=== PATIENT | male | born 1965 | race Caucasian/White ===

== ENCOUNTER 2019-12-07 07:21 | Emergency (ER) | payer BC ==
--- NOTE | 2019-12-07 07:33 | EDM.PDOC ---
ED HPI GENERAL MEDICAL PROBLEM - General Stated Complaint: IRREGULAR HEART BEAT Time Seen by Provider: 12/07/19 07:27 Source of Information: Reports: Patient History Limitations: Reports: No Limitations - History of Present Illness INITIAL COMMENTS - FREE TEXT/NARRATIVE: HISTORY OF PRESENT ILLNESS: Patient is a 54-year-old male with history of HTN, hyperlipidemia who presents to the ER with complaints of palpitations that began approximately 45 minutes prior to arrival and lasted a few minutes and resolved spontaneously. [place] warm and lightheaded. Denies any symptoms since that time. States that he has had multiple episodes of brief palpitations in the past, but , what concerned him today was the fact that he checked his blood pressure afterward repeatedly and the more he checked it the higher it went. States it went to 150/102. He denies any retrosternal chest pain but states he is get occasional muscular pain to the left pectoral muscle which is been going on for years and unchanged from baseline frequency or character. Denies any recent illness no fevers or chills. No dyspnea. No abdominal pain nausea vomiting or diarrhea. No diaphoresis. Denies any syncope. No leg pain or history of thromboembolic disease. Denies any current sensation of palpitations. Denies any family history of heart disease. Pt is not a smoker. Denies history of CAD REVIEW OF SYSTEMS: Other than the symptoms associated with the present events, the following is reported with regard to recent health: General: (-) fever. HENT: (-) congestion. Respiratory: (-) cough. Cardiovascular: (+) palpitations GI: (-) abdominal pain. : (-) urinary complaints. Musculoskeletal: (-) other aches or pains. Endocrine: (-) generalized weakness. Neurological: (-) localized weakness. Skin: (-) rash PAST MEDICAL HISTORY: reviewed as per nursing notes SOCIAL HISTORY: reviewed as per nursing notes, MEDICATIONS: Per nurse's note ALLERGIES: Per nurse's note, reviewed by me PHYSICAL EXAMINATION: GENERALIZED APPEARANCE: well developed, well nourished in no distress VITAL SIGNS: Per nurse's note, reviewed by me SKIN: Warm, dry; (-) cyanosis; (-) rash. HEAD: (-) scalp swelling, (-) tenderness. EYES: (-) conjunctival pallor, (-) scleral icterus. ENMT: (-) stridor; mucous membranes moist. NECK: (-) tenderness, (-) stiffness, CHEST AND RESPIRATORY: (-) rales, (-) rhonchi, (-) wheezes; breath sounds equal bilaterally. HEART AND CARDIOVASCULAR: (-) irregularity; (-) murmur, (-) gallop. ABDOMEN AND GI: Soft; (-) tenderness, (-) guarding, (-) rebound, (-) palpable masses, EXTREMITIES: (-) deformity, (-) edema. NEURO AND PSYCH: Alert. Cranial nerves grossly intact; strength symmetric. gait steady DIAGNOSTICS: EKG done at 0724: nsr at 71 bpm. nml axis. nml intervals. early repolarization. no acute st changes repeat EKG 0936: essentially unchanged. CXR: as read by radiologist, report reviewed by myself labs ordered and reviewed EMERGENCY DEPARTMENT COURSE AND TREATMENT: Patient's condition remained stable during Emergency Department evaluation. Based on history, physical exam, and diagnostic evaluation, the patient appears to have symptoms consistent with palpitations that have resolved. He has chronic intermittent muscular pain to left pectoral muscle and is low risk chest pain with low HEART score. The physical exam was unremarkable including normal chest and respiratory exam. Laboratory testing was performed. I do not believe the symptoms are related to acute ischemic etiology. I also do not believe this is a vascular catastrophe such as an aortic dissection or an acute rupture of an abdominal aortic aneurysm. The patient is low risk for acute thromboembolic phenomena. The patient will be discharged to follow-up with their primary care physician in the next 24-48 hours or return here if unable to make an appointment with their primary care physician. Patient was advised of our evaluation and instructed to seek medical attention immediately if symptoms change, worsen, or new symptoms develop. PLAN AND FOLLOW-UP: Patient received written and verbal instructions regarding this condition. Return to ED immediately with any new or worsening symptoms. Follow up to be arranged by patient with pcp in 1-2 days for further evaluation. Given discharge precautions. Patient expressed verbal understanding. - Related Data Allergies Allergy/AdvReac Type Severity Reaction Status Date / Time No Known Allergies Allergy Verified 12/07/19 07:32 Home Meds: Home Meds Carvedilol [Coreg] 12.5 mg PO DAILY 12/07/19 [History] Lisinopril [Zestril] 5 mg PO DAILY 12/07/19 [History] Rosuvastatin [Crestor] 5 mg PO BEDTIME 12/07/19 [History] ED ROS GENERAL - Review of Systems Review Of Systems: See Below (see dictation) ED EXAM, GENERAL - Physical Exam Exam: See Below (see dictation) Course - Vital Signs Last Recorded V/S: Last Vital Signs Temp 97.3 F 12/07/19 07:25 Pulse 65 12/07/19 10:15 Resp 18 12/07/19 10:15 BP 118/76 12/07/19 10:15 Pulse Ox 98 12/07/19 10:15 - Orders/Labs/Meds Orders: Active Orders 24 hr Category Date Time Status EKG Documentation Completion [RC] STAT Care 12/07/19 07:28 Active Labs: Laboratory Tests 12/07/19 12/07/19 12/07/19 Range/Units 07:20 07:20 09:27 WBC 9.76 (4.0-11.0) K/uL RBC 4.89 (4.50-5.90) M/uL Hgb 15.6 (13.0-17.0) g/dL Hct 44.6 (38.0-50.0) % MCV 91.2 (80.0-98.0) fL MCH 31.9 (27.0-32.0) pg MCHC 35.0 (31.0-37.0) g/dL RDW Std Deviation 42.6 (28.0-62.0) fl RDW Coeff of [place] 13 (11.0-15.0) % Plt Count 277 (150-400) K/uL MPV 10.40 (7.40-12.00) fL Neut % (Auto) 48.9 (48.0-80.0) % Lymph % (Auto) 38.1 (16.0-40.0) % [place] % (Auto) 11.4 (0.0-15.0) % Eos % (Auto) 1.4 (0.0-7.0) % Baso % (Auto) 0.2 (0.0-1.5) % Neut # (Auto) 4.8 (1.4-5.7) K/uL Lymph # (Auto) 3.7 H (0.6-2.4) K/uL [place] # (Auto) 1.1 H (0.0-0.8) K/uL Eos # (Auto) 0.1 (0.0-0.7) K/uL Baso # (Auto) 0.0 (0.0-0.1) K/uL Nucleated RBC % 0.0 /100WBC Nucleated RBCs # 0 K/uL Sodium 141 (136-148) mmol/L Potassium 3.7 (3.5-5.1) mmol/L Chloride 103 (98-107) mmol/L Carbon Dioxide 31.0 (21.0-32.0) mmol/L BUN 12 (7.0-18.0) mg/dL Creatinine 0.9 (0.8-1.3) mg/dL Est Cr Clr Drug Dosing 114.75 mL/min Estimated GFR (MDRD) > 60.0 ml/min Glucose 99 (74-106) mg/dL Calcium 9.2 (8.5-10.1) mg/dL Magnesium 2.3 (1.8-2.4) mg/dL Total Bilirubin 0.6 (0.2-1.0) mg/dL AST 31 (15-37) IU/L ALT 46 (14-63) IU/L Alkaline Phosphatase 102 (46-116) U/L Troponin I < 0.050 < 0.050 (0.000-0.056) ng/mL Total Protein 7.5 (6.4-8.2) g/dL Albumin 4.3 (3.4-5.0) g/dL Globulin 3.2 (2.6-4.0) g/dL Albumin/Globulin Ratio 1.3 (0.9-1.6) Departure - Departure Time of Disposition: 10:08 Disposition: Home, Self-Care 01 Condition: Good Clinical Impression: Palpitations - Discharge Information *PRESCRIPTION DRUG MONITORING PROGRAM REVIEWED*: Not Applicable *COPY OF PRESCRIPTION DRUG MONITORING REPORT IN PATIENT RHIANNON: Not Applicable Instructions: Hypertension, [id number], Palpitations Referrals: PCP,None [Primary Care Provider] - 1 Day Forms: ED Department Discharge Additional Instructions: The following information is given to patients seen in the emergency department who are being discharged to home. This information is to outline your options for follow-up care. We provide all patients seen in our emergency department with a follow-up referral. The need for follow-up, as well as the timing and circumstances, are variable depending upon the specifics of your emergency department visit. If you don't have a primary care physician on staff, we will provide you with a referral. We always advise you to contact your personal physician following an emergency department visit to inform them of the circumstance of the visit and for follow-up with them and/or the need for any referrals to a consulting specialist. The emergency department will also refer you to a specialist when appropriate. This referral assures that you have the opportunity for follow-up care with a specialist. All of these measure are taken in an effort to provide you with optimal care, which includes your follow-up. Under all circumstances we always encourage you to contact your private physician who remains a resource for coordinating your care. When calling for follow-up care, please make the office aware that this follow-up is from your recent emergency room visit. If for any reason you are refused follow-up, please contact the [facility] Emergency Department at and asked to speak to the emergency department charge nurse. Sepsis Event Note - Focused Exam Vital Signs: Vital Signs Temp Pulse Resp BP Pulse Ox 12/07/19 10:15 65 18 118/76 98 12/07/19 09:00 66 18 123/84 96 12/07/19 08:25 69 18 127/84 98 12/07/19 07:45 77 18 146/97 H 97 12/07/19 07:25 97.3 F 70 18 161/100 H 98 Date Exam was Performed: 12/07/19 Time Exam was Performed: 10:45 - My Orders Last 24 Hours: My Active Orders 12/07/19 07:28 EKG Documentation Completion [RC] STAT - Assessment/Plan Last 24 Hours: My Active Orders 12/07/19 07:28 EKG Documentation Completion [RC] STAT
[2019-12-07 08:10] LABS: BLOOD UREA NITROGEN,BUN 12 mg/dL (7.0-18.0); CHLORIDE,CL 103 mmol/L (98-107); GLUCOSE RANDOM 99 mg/dL (74-106); POTASSIUM,K 3.7 mmol/L (3.5-5.1); SODIUM,NA 141 mmol/L (136-148)
--- NOTE | 2019-12-07 09:47 | CR ---
Chest: Portable view of the chest was obtained. Comparison: No prior chest x-ray is available. Heart size and mediastinum are normal. Lungs are clear with no acute parenchymal change. Bony structures are grossly intact. Impression: 1. Nothing acute is appreciated on portable chest x-ray. Diagnostic code #1 This report was dictated in MDT
== END 2019-12-07 10:20 | disposition home or self-care (01) ==
LOC: MW.ED 07:21
DX: R00.2 Palpitations (principal); I10 Essential (primary) hypertension; E78.5 Hyperlipidemia, unspecified; Z79.899 Other long term (current) drug therapy
CPT/HCPCS: 36415; 71045; 71045-26; 80053; 83735; 84484; 85025; 93005; 99283; 99285-25

== ENCOUNTER 2021-02-03 21:09 | Emergency (ER) | payer BC ==
[2021-02-03] MEDS ORDERED: Sodium Chloride 0.9% 10 ML Syringe FLUSH PRN (21:31)
[2021-02-03] MEDS ORDERED: Sodium Chloride 0.9% 2.5 ML Syringe FLUSH PRN (21:31)
--- NOTE | 2021-02-03 21:43 | EDM.PDOC ---
ED HPI GENERAL MEDICAL PROBLEM - General Chief Complaint: Cardiovascular Problem Stated Complaint: RAPID HEART BEAT Time Seen by Provider: 02/03/21 21:20 - History of Present Illness INITIAL COMMENTS - FREE TEXT/NARRATIVE: History of present illness: [] The patient reports that about 7 PM he began to have rapid heart rate. He thinks it was after that the thinks it was about that. He is not diaphoretic or short of breath. He does not feel lightheaded. He does not have any chest pain. This happened 14 months ago and he was seen in the emergency department but it stopped on its own before he got here. In the remote past he has had a fast heart rate and had an ablation. That was after a prolonged recovery from a myocardial contusion from trauma. The patient is a non-smoker. The patient does not drink. Patient's dog scratch his right hand fairly deeply 2 days ago. He has not had a tetanus shot in 10 years. Review of systems: As per history of present illness and below otherwise all systems reviewed and negative. Past medical history: As per history of present illness and as reviewed below otherwise noncontributory. Surgical history: As per history of present illness and as reviewed below otherwise noncontributory. Social history: No reported history of drug or alcohol abuse. Family history: As per history of present illness and as reviewed below otherwise noncontributory. Physical exam: Constitutional - well developed, well-nourished and in no acute distress HEENT - normocephalic, no evidence of trauma - external nose and mouth normal - no mass in neck and no JVD - mucosae moist EYES - full EOM, PERRL, no icterus - no evidence of inflammation, injection, or drainage Respiratory - no respiratory distress, equal bilateral expansion, lungs clear to auscultation and no abnormal lung sounds Cardiovascular - Regular Rhythm with S1 and S2 appreciated and no murmur, gallop or rub. GI - abdomen soft without distension or organomegaly - normal bowel sounds - no guard or rebound Musculoskeletal no gross deformity of long bones or joints - no tenderness, swelling or edema Neurologic - Alert and oriented times four - CN II-XII grossly intact - motor sensory and coordination symmetrically normal Psychiatric - appropriate mood and affect with normal thought content Hematologic - No petechiae or purpura - mucosa appropriate color and sclera not pale - normal nail bed color and refill Integument -healing linear abrasion across the dorsum of the right hand over the MPJ #1 which is healing and not apparently infected no rash or evidence of trauma - normal turgor Diagnostics: [] Therapeutics: [] Impression: [] Plan: [] Definitive disposition and diagnosis as appropriate pending reevaluation and review of above. - Related Data Allergies Allergy/AdvReac Type Severity Reaction Status Date / Time No Known Allergies Allergy Verified 02/03/21 21:19 Home Meds: Home Meds Rosuvastatin [Crestor] 5 mg PO BEDTIME 12/07/19 [History] carvediloL [Coreg] 12.5 mg PO DAILY 12/07/19 [History] lisinopriL [Zestril] 5 mg PO DAILY 12/07/19 [History] Diltiazem [Cardizem CD] 120 mg PO DAILY #30 cap.er 02/03/21 [Rx] Diltiazem [Cardizem CD] 120 mg PO DAILY #30 cap.er 02/04/21 [Rx] Past Medical History Cardiovascular History: Reports: High Cholesterol, Hypertension, Other (See Below) Other Cardiovascular History: aortic enlargement Respiratory History: Reports: Asthma - Infectious Disease History Infectious Disease History: Reports: Chicken Pox - Past Surgical History Cardiovascular Surgical History: Reports: Cardiac Ablation Social & Family History - Family History Family Medical History: No Pertinent Family History - Tobacco Use Tobacco Use Status *Q: Never Tobacco User - Caffeine Use Caffeine Use: Reports: None - Recreational Drug Use Recreational Drug Use: No ED ROS GENERAL - Review of Systems Review Of Systems: Comprehensive ROS is negative, except as noted in HPI. ED EXAM, GENERAL - Physical Exam Exam: See Below Free Text/Narrative:: My physical exam is in the HPI #2 Interpretation EKG Date: 02/03/21 EKG Interpretation Comments: EKG done at 2128 hrs. shows a atrial fibrillation with a ventricular rate of 136 . There is a QT duration of 474 and an axis of 11. QRS ST and T are within normal limits. Compared to 12/07/2019 the patient's QRS ST and T are similar. The patient was in a sinus rhythm at that time. Impression recurrence of atrial fibrillation but otherwise no ischemia or injury. He does have a rapid ventricular response. EKG #2 done at 2332 hrs. shows sinus rhythm heart rate 69 DE 174 QT duration 423 axis negative for. There is some ST elevation in the precordial leads. When compared to prior EKG 14 months ago the patient has no change. Impression spontaneous conversion to sinus rhythm with no acute injury. Course - Vital Signs Text/Narrative:: 2241 hrs. patient has a controlled ventricular rate after 1 dose of diltiazem. He is already on a beta-ariadne at home. Discussed with Dr. Hernandez our sampler and test preparer on-call for admissions. She felt this patient with a CHADS2 score of 1 could go home without anticoagulation and have cardiology follow-up if I can control his rate. She did suggest to serial troponin levels. Since there were 2hours or more of symptoms before he had his first troponin now repeated 2 hours after the initial draw. 2307 while awaiting the second troponin the heart rate which had come down to 80-90 is creep back up to the 124. See orders 2333 it appears he may have converted to sinus rhythm before I gave the oral Cardizem. Blood pressure is only 90 systolic. Plan repeat EKG, reassess troponin, disposition. Last Recorded V/S: Last Vital Signs Temp Pulse 73 02/03/21 23:51 Resp 17 02/03/21 22:07 BP 102/58 L 02/03/21 23:51 Pulse Ox 97 02/03/21 23:51 - Orders/Labs/Meds Orders: Active Orders 24 hr Category Date Time Status EKG 12 Lead [EKG Documentation Completion] [RC] STAT Care 02/03/21 23:33 Active EKG Documentation Completion [RC] AM Care 02/03/21 21:31 Active Telemetry Monitoring [Cardiac Monitoring] [RC] . Care 02/03/21 21:45 Active DIRECTED Vaccines to be Administered [RC] PER UNIT ROUTINE Care 02/03/21 23:54 Active Sodium Chloride 0.9% [Saline Flush] Med 02/03/21 21:31 Active 10 ml FLUSH ASDIRECTED PRN Sodium Chloride 0.9% [Saline Flush] Med 02/03/21 21:31 Active 2.5 ml FLUSH ASDIRECTED PRN Saline Lock Insert [OM.PC] Stat Oth 02/03/21 21:31 Ordered Medication Orders Sodium Chloride (Sodium Chloride 0.9% 10 Ml Syringe) 10 ml FLUSH ASDIRECTED PRN PRN Reason: Keep Vein Open Last Admin: 02/03/21 21:33 Dose: 10 ml Documented by: MARK Sodium Chloride (Sodium Chloride 0.9% 2.5 Ml Syringe) 2.5 ml FLUSH ASDIRECTED PRN PRN Reason: Keep Vein Open Last Admin: 02/03/21 21:33 Dose: 2.5 ml Documented by: MARK Labs: Laboratory Tests 02/03/21 02/03/21 02/03/21 Range/Units 21:27 21:27 23:26 WBC 14.32 H (4.0-11.0) K/uL RBC 5.15 (4.50-5.90) M/uL Hgb 16.9 (13.0-17.0) g/dL Hct 46.8 (38.0-50.0) % MCV 90.9 (80.0-98.0) fL MCH 32.8 H (27.0-32.0) pg MCHC 36.1 (31.0-37.0) g/dL RDW Std Deviation 41.8 (28.0-62.0) fl RDW Coeff of [place] 13 (11.0-15.0) % Plt Count 257 (150-400) K/uL MPV 10.80 (7.40-12.00) fL Neut % (Auto) 67.1 (48.0-80.0) % Lymph % (Auto) 21.9 (16.0-40.0) % [place] % (Auto) 10.1 (0.0-15.0) % Eos % (Auto) 0.6 (0.0-7.0) % Baso % (Auto) 0.3 (0.0-1.5) % Neut # (Auto) 9.6 H (1.4-5.7) K/uL Lymph # (Auto) 3.1 H (0.6-2.4) K/uL [place] # (Auto) 1.5 H (0.0-0.8) K/uL Eos # (Auto) 0.1 (0.0-0.7) K/uL Baso # (Auto) 0.0 (0.0-0.1) K/uL Nucleated RBC % 0.0 /100WBC Nucleated RBCs # 0 K/uL Sodium 141 (136-148) mmol/L Potassium 3.9 (3.5-5.1) mmol/L Chloride 103 (98-107) mmol/L Carbon Dioxide 26.3 (21.0-32.0) mmol/L BUN 14 (7.0-18.0) mg/dL Creatinine 1.1 (0.8-1.3) mg/dL Est Cr Clr Drug Dosing 92.82 mL/min Estimated GFR (MDRD) > 60.0 ml/min Glucose 121 H (74-106) mg/dL Calcium 9.0 (8.5-10.1) mg/dL Magnesium 2.1 (1.8-2.4) mg/dL Total Bilirubin 0.5 (0.2-1.0) mg/dL AST 30 (15-37) IU/L ALT 56 (14-63) IU/L Alkaline Phosphatase 100 (46-116) U/L Troponin I < 0.050 < 0.050 (0.000-0.056) ng/mL Total Protein 7.8 (6.4-8.2) g/dL Albumin 4.3 (3.4-5.0) g/dL Globulin 3.5 (2.6-4.0) g/dL Albumin/Globulin Ratio 1.2 (0.9-1.6) TSH 3rd Generation 2.16 (0.36-3.74) uIU/mL Meds: Medications Generic Name Dose Route Start Last Admin Trade Name Jo Ann PRN Reason Stop Dose Admin Sodium Chloride 10 ml 02/03/21 21:31 02/03/21 21:33 Sodium Chloride 0.9% 10 Ml Syringe FLUSH 10 ml ASDIRECTED PRN Administration Keep Vein Open Sodium Chloride 2.5 ml 02/03/21 21:31 02/03/21 21:33 Sodium Chloride 0.9% 2.5 Ml Syringe FLUSH 2.5 ml ASDIRECTED PRN Administration Keep Vein Open Discontinued Medications Generic Name Dose Route Start Last Admin Trade Name Freq PRN Reason Stop Dose Admin Diltiazem HCl 20 mg 02/03/21 21:46 02/03/21 21:59 Diltiazem 25 Mg/5 Ml Sdv IVPUSH 02/03/21 21:47 20 mg ONETIME ONE Administration Diltiazem HCl 120 mg 02/03/21 23:07 02/03/21 23:37 Diltiazem 120 Mg Cap.Cd PO 02/03/21 23:08 Not Given ONETIME ONE Diphtheria/Tetanus/Acell Pertussis 0.5 ml 02/03/21 23:54 Diphtheria,Pertussis(Acell),Tetanus Vaccine 0.5 Ml Syringe IM 02/03/21 23:55 .ONCE ONE Departure - Departure Time of Disposition: 00:05 Disposition: Home, Self-Care 01 Condition: Good Clinical Impression: Paroxysmal atrial fibrillation, Abrasion of right hand Prescriptions: Diltiazem [Cardizem CD] 120 mg PO DAILY #30 cap.er Referrals: PCP,None [Primary Care Provider] - Forms: ED Department Discharge Additional Instructions: Start new medicine. With hold it if you are dizzy lightheaded or your blood pressure is extremely low. See cardiology for follow-up. [facility] - cardiology [address] [place] [id number] [facility] - Primary Care [address] [place] [id number] [id number] The following information is given to patients seen in the emergency department who are being discharged to home. This information is to outline your options for follow-up care. We provide all patients seen in our emergency department with a follow-up referral. The need for follow-up, as well as the timing and circumstances, are variable depending upon the specifics of your emergency department visit. If you don't have a primary care physician on staff, we will provide you with a referral. We always advise you to contact your personal physician following an emergency department visit to inform them of the circumstance of the visit and for follow-up with them and/or the need for any referrals to a consulting specialist. The emergency department will also refer you to a specialist when appropriate. This referral assures that you have the opportunity for follow-up care with a specialist. All of these measure are taken in an effort to provide you with optimal care, which includes your follow-up. Under all circumstances we always encourage you to contact your private physician who remains a resource for coordinating your care. When calling for follow-up care, please make the office aware that this follow-up is from your recent emergency room visit. If for any reason you are refused follow-up, please contact the [facility] Emergency Department at and asked to speak to the emergency department charge nurse. Sepsis Event Note (ED) - Evaluation Sepsis Screening Result: No Definite Risk - Focused Exam Vital Signs: Vital Signs Pulse Resp BP Pulse Ox 02/03/21 23:51 73 102/58 L 97 02/03/21 23:22 102 H 107/60 93 L 02/03/21 22:48 97 103/59 L 93 L 02/03/21 22:07 88 17 107/80 95 02/03/21 21:20 156 H 20 129/75 91 L - My Orders Last 24 Hours: My Active Orders 02/03/21 21:31 EKG Documentation Completion [RC] AM Sodium Chloride 0.9% [Saline Flush] 10 ml FLUSH ASDIRECTED PRN Sodium Chloride 0.9% [Saline Flush] 2.5 ml FLUSH ASDIRECTED PRN Saline Lock Insert [OM.PC] Stat 02/03/21 21:45 Telemetry Monitoring [Cardiac Monitoring] [RC] . DIRECTED 02/03/21 23:33 EKG 12 Lead [EKG Documentation Completion] [RC] STAT 02/03/21 23:54 Vaccines to be Administered [RC] PER UNIT ROUTINE - Assessment/Plan Last 24 Hours: My Active Orders 02/03/21 21:31 EKG Documentation Completion [RC] AM Sodium Chloride 0.9% [Saline Flush] 10 ml FLUSH ASDIRECTED PRN Sodium Chloride 0.9% [Saline Flush] 2.5 ml FLUSH ASDIRECTED PRN Saline Lock Insert [OM.PC] Stat 02/03/21 21:45 Telemetry Monitoring [Cardiac Monitoring] [RC] . DIRECTED 02/03/21 23:33 EKG 12 Lead [EKG Documentation Completion] [RC] STAT 02/03/21 23:54 Vaccines to be Administered [RC] PER UNIT ROUTINE
[2021-02-03] MEDS ORDERED: Diltiazem 25 MG/5 ML SDV IVPUSH ONE (21:46)
[2021-02-03 22:08] LABS: BLOOD UREA NITROGEN,BUN 14 mg/dL (7.0-18.0); CARBON DIOXIDE,CO2 26.3 mmol/L (21.0-32.0); CHLORIDE,CL 103 mmol/L (98-107); GLUCOSE RANDOM 121 mg/dL (74-106); POTASSIUM,K 3.9 mmol/L (3.5-5.1); SODIUM,NA 141 mmol/L (136-148)
[2021-02-03] MEDS ORDERED: Diltiazem 120 MG Cap.CD PO ONE (23:07)
[2021-02-03] MEDS ORDERED: Diphtheria,Pertussis(Acell),Tetanus Vaccine 0.5 ML Syringe IM ONE (23:54)
== END 2021-02-04 00:22 | disposition home or self-care (01) ==
LOC: MW.ED 21:09
DX: S60.511A Abrasion of right hand, initial encounter (principal); I48.0 Paroxysmal atrial fibrillation; E78.00 Pure hypercholesterolemia, unspecified; I10 Essential (primary) hypertension; J45.909 Unspecified asthma, uncomplicated; Z23 Encounter for immunization; Z79.899 Other long term (current) drug therapy; W54.8XXA Other contact with dog, initial encounter
CPT/HCPCS: 36415; 80053; 83735; 84443; 84484; 85025; 90471; 90715; 93005; 96374; 99285; J3490

== ENCOUNTER 2021-07-08 21:08 | Emergency (ER) | payer BC ==
--- NOTE | 2021-07-08 21:17 | EDM.PDOC ---
ED HPI GENERAL MEDICAL PROBLEM - General Chief Complaint: Cardiovascular Problem Stated Complaint: AFIB Time Seen by Provider: 07/08/21 21:12 Source of Information: Reports: Patient History Limitations: Reports: No Limitations - History of Present Illness INITIAL COMMENTS - FREE TEXT/NARRATIVE: Patient is a 55-year-old male history of A. fib on a beta-ariadne presents today for palpitation. States his heart is feels funny is beating fast and are normal. He denies any chest pain shortness of breath fever chills nausea vomiting. He took his medications this morning at night as well. Denies any caffeine use drugs or alcohol or anything that would have triggered his A. fib. - Related Data Allergies Allergy/AdvReac Type Severity Reaction Status Date / Time No Known Allergies Allergy Verified 07/08/21 21:17 Home Meds: Home Meds Rosuvastatin [Crestor] 5 mg PO BEDTIME 12/07/19 [History] carvediloL [Coreg] 12.5 mg PO DAILY 12/07/19 [History] lisinopriL [Zestril] 5 mg PO DAILY 12/07/19 [History] Diltiazem [Cardizem CD] 120 mg PO DAILY #30 cap.er 02/03/21 [Rx] Diltiazem [Cardizem CD] 120 mg PO DAILY #30 cap.er 02/04/21 [Rx] Past Medical History Cardiovascular History: Reports: High Cholesterol, Hypertension, Other (See Below) Other Cardiovascular History: aortic enlargement Respiratory History: Reports: Asthma - Infectious Disease History Infectious Disease History: Reports: Chicken Pox - Past Surgical History Cardiovascular Surgical History: Reports: Cardiac Ablation Social & Family History - Family History Family Medical History: No Pertinent Family History - Caffeine Use Caffeine Use: Reports: None ED ROS GENERAL - Review of Systems Review Of Systems: See Below Constitutional: Reports: No Symptoms HEENT: Reports: No Symptoms Respiratory: Reports: No Symptoms Cardiovascular: Reports: Palpitations Endocrine: Reports: No Symptoms GI/Abdominal: Reports: No Symptoms : Reports: No Symptoms Musculoskeletal: Reports: No Symptoms Skin: Reports: No Symptoms Neurological: Reports: No Symptoms Psychiatric: Reports: No Symptoms Hematologic/Lymphatic: Reports: No Symptoms Immunologic: Reports: No Symptoms ED EXAM, GENERAL - Physical Exam Exam: See Below Exam Limited By: No Limitations General Appearance: Alert, WD/WN, No Apparent Distress Eye Exam: Bilateral Eye: EOMI, PERRL Nose: Normal Inspection Throat/Mouth: Normal Inspection Head: Atraumatic, Normocephalic Neck: Normal Inspection Respiratory/Chest: No Respiratory Distress, Lungs Clear, Normal Breath Sounds Cardiovascular: Normal Peripheral Pulses, Regular Rate, Rhythm Peripheral Pulses: 2+: Radial (L), Radial (R) GI/Abdominal: Normal Bowel Sounds, Soft, Non-Tender Extremities: Normal Inspection, Normal Range of Motion Neurological: Alert, Oriented, Normal Cognition, Normal Gait Course - Vital Signs Last Recorded V/S: Last Vital Signs Temp 97 F 07/08/21 21:17 Pulse 55 L 07/08/21 23:55 Resp 18 07/08/21 23:18 BP 95/51 L 07/08/21 23:55 Pulse Ox 95 07/08/21 23:55 - Orders/Labs/Meds Orders: Active Orders 24 hr Category Date Time Status MAGNESIUM [CHEM] Stat Lab 07/08/21 21:20 Received Labs: Laboratory Tests 07/08/21 07/08/21 Range/Units 21:20 21:20 WBC 9.03 (4.0-11.0) K/uL RBC 4.73 (4.50-5.90) M/uL Hgb 15.3 (13.0-17.0) g/dL Hct 42.3 (38.0-50.0) % MCV 89.4 (80.0-98.0) fL MCH 32.3 H (27.0-32.0) pg MCHC 36.2 (31.0-37.0) g/dL RDW Std Deviation 40.6 (28.0-62.0) fl RDW Coeff of [place] 13 (11.0-15.0) % Plt Count 229 (150-400) K/uL MPV 10.00 (7.40-12.00) fL Neut % (Auto) 54.7 (48.0-80.0) % Lymph % (Auto) 32.4 (16.0-40.0) % [place] % (Auto) 11.0 (0.0-15.0) % Eos % (Auto) 1.7 (0.0-7.0) % Baso % (Auto) 0.2 (0.0-1.5) % Neut # (Auto) 4.9 (1.4-5.7) K/uL Lymph # (Auto) 2.9 H (0.6-2.4) K/uL [place] # (Auto) 1.0 H (0.0-0.8) K/uL Eos # (Auto) 0.2 (0.0-0.7) K/uL Baso # (Auto) 0.0 (0.0-0.1) K/uL Nucleated RBC % 0.0 /100WBC Nucleated RBCs # 0 K/uL Sodium 144 (136-148) mmol/L Potassium 3.9 (3.5-5.1) mmol/L Chloride 105 (98-107) mmol/L Carbon Dioxide 30.2 (21.0-32.0) mmol/L BUN 18 (7.0-18.0) mg/dL Creatinine 1.0 (0.8-1.3) mg/dL Est Cr Clr Drug Dosing 102.10 mL/min Estimated GFR (MDRD) > 60.0 ml/min Glucose 103 (74-106) mg/dL Calcium 9.2 (8.5-10.1) mg/dL Total Bilirubin 0.5 (0.2-1.0) mg/dL AST 28 (15-37) IU/L ALT 34 (14-63) IU/L Alkaline Phosphatase 90 (46-116) U/L Creatine Kinase 278 (26-308) U/L Troponin I < 0.050 (0.000-0.056) ng/mL Total Protein 7.1 (6.4-8.2) g/dL Albumin 3.8 (3.4-5.0) g/dL Globulin 3.3 (2.6-4.0) g/dL Albumin/Globulin Ratio 1.2 (0.9-1.6) Meds: Medications Discontinued Medications Generic Name Dose Route Start Last Admin Trade Name Freq PRN Reason Stop Dose Admin Diltiazem HCl 20 mg 07/08/21 21:41 07/08/21 21:52 Diltiazem 25 Mg/5 Ml Sdv IVPUSH 07/08/21 21:42 20 mg ONETIME ONE Administration Diltiazem HCl 120 mg 07/08/21 22:09 07/08/21 22:23 Diltiazem 120 Mg Cap.Cd PO 07/08/21 22:10 Not Given ONETIME ONE Sodium Chloride 1,000 mls @ 1,000 mls/hr 07/08/21 22:22 07/08/21 22:27 Normal Saline IV 07/08/21 23:21 1,000 mls/hr .Bolus ONE Administration - Re-Assessments/Exams Free Text/Narrative Re-Assessment/Exam: 07/09/21 00:15 Patient blood pressure was slightly low to 90s over 60s map was greater than 75 we get patient up walked around 10 symptomatic he does have some PVCs. We will discharge patient home have patient follow-up with cardiology. Departure - Departure Time of Disposition: 00:16 Disposition: Home, Self-Care 01 Condition: Good Clinical Impression: A-fib Instructions: Atrial Fibrillation, [id number] Referrals: PCP,Not In Area [Primary Care Provider] - Forms: ED Department Discharge Additional Instructions: The following information is given to patients seen in the emergency department who are being discharged to home. This information is to outline your options for follow-up care. We provide all patients seen in our emergency department with a follow-up referral. The need for follow-up, as well as the timing and circumstances, are variable depending upon the specifics of your emergency department visit. If you don't have a primary care physician on staff, we will provide you with a referral. We always advise you to contact your personal physician following an emergency department visit to inform them of the circumstance of the visit and for follow-up with them and/or the need for any referrals to a consulting specialist. The emergency department will also refer you to a specialist when appropriate. This referral assures that you have the opportunity for follow-up care with a specialist. All of these measure are taken in an effort to provide you with optimal care, which includes your follow-up. Under all circumstances we always encourage you to contact your private phys ician who remains a resource for coordinating your care. When calling for follow-up care, please make the office aware that this follow-up is from your recent emergency room visit. If for any reason you are refused follow-up, please contact the [facility] Emergency Department at and asked to speak to the emergency department charge nurse. Please follow up with your primary care physician. If you do not have a primary care physician, see below: Cardiac Rehabilitation at [facility] [address] [place] [id number] You were seen today because you have atrial fibrillation we gave you medication called potassium to help get you had atrial fibrillation. This is a antih ypertensive medication as well and slight major blood pressure will lower. We get you up and walk around your stable did not have any symptoms from his low blood pressure. The medication will wear off. Check blood pressure in the morning before you take your beta-ariadne. 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 If you have any concerning signs or symptoms please return to the ED immediately. Critical Care Note - Critical Care Note Total Time (mins): 45 Comments: Critical Care Procedure Note Authorized and Performed by: Dr. Yap Total critical care time: Approximately Due to a high probability of clinically significant, life threatening deterioration, the patient required my highest level of preparedness to intervene emergently and I personally spent this critical care time directly and personally managing the patient. This critical care time included obtaining a history; examining the patient; pulse oximetry; ordering and review of studies; arranging urgent treatment with development of a management plan; evaluation of patient's response to treatment; frequent reassessment; and, discussions with other providers. This critical care time was performed to assess and manage the high probability of imminent, life-threatening deterioration that could result in multi-organ failure. It was exclusive of separately billable procedures and treating other patients and teaching time. Sepsis Event Note (ED) - Focused Exam Vital Signs: Vital Signs Temp Pulse Resp BP Pulse Ox 07/08/21 23:55 55 L 95/51 L 95 07/08/21 23:18 55 L 18 100/55 L 97 07/08/21 22:50 59 L 98/56 L 93 L 07/08/21 22:26 63 18 95/55 L 96 07/08/21 21:58 92 07/08/21 21:17 97 F 128 H 18 123/69 98 - My Orders Last 24 Hours: My Active Orders 07/08/21 21:20 MAGNESIUM [CHEM] Stat - Assessment/Plan Last 24 Hours: My Active Orders 07/08/21 21:20 MAGNESIUM [CHEM] Stat Plan: Patient is a 55-year-old male history of A. fib presents today for palpitations. Patient EKG shows atrial fibrillation will be given diltiazem and will be reassessed.
[2021-07-08] MEDS ORDERED: Diltiazem 25 MG/5 ML SDV IVPUSH ONE (21:41)
[2021-07-08 21:59] LABS: BLOOD UREA NITROGEN,BUN 18 mg/dL (7.0-18.0); CARBON DIOXIDE,CO2 30.2 mmol/L (21.0-32.0); CHLORIDE,CL 105 mmol/L (98-107); GLUCOSE RANDOM 103 mg/dL (74-106); POTASSIUM,K 3.9 mmol/L (3.5-5.1); SODIUM,NA 144 mmol/L (136-148)
[2021-07-08] MEDS ORDERED: Diltiazem 120 MG Cap.CD PO ONE (22:09)
[2021-07-08] MEDS ORDERED: Sodium Chloride 0.9% 1,000 ML IV ONE (22:22)
== END 2021-07-09 00:28 | disposition home or self-care (01) ==
LOC: MW.ED 21:08
DX: I48.91 Unspecified atrial fibrillation (principal); E78.00 Pure hypercholesterolemia, unspecified; I10 Essential (primary) hypertension; Z79.899 Other long term (current) drug therapy
CPT/HCPCS: 36415; 80053; 82550; 83735; 84484; 85025; 93005; 96374; 99285; J3490; J7030

== ENCOUNTER 2024-02-29 18:07 | Emergency (ER) | payer BC ==
[2024-02-29] MEDS: Albuterol/Ipratropium 3.0-0.5 MG/3 ML Neb Soln NEB ONE (18:33)
[2024-02-29] MEDS: Amoxicillin/Clavulanate K 875-125 MG Tab PO ONE (19:35)
[2024-02-29] MEDS: Codeine/guaiFENesin 10-100 MG/5 ML Syrup 5 ML Cup PO ONE (20:24)
== END 2024-02-29 20:30 | disposition home or self-care (01) ==
LOC: MW.ED 18:07
DX: J06.9 Acute upper respiratory infection, unspecified (principal); I10 Essential (primary) hypertension; E78.00 Pure hypercholesterolemia, unspecified; J45.909 Unspecified asthma, uncomplicated; Z79.899 Other long term (current) drug therapy; Z79.51 Long term (current) use of inhaled steroids; Z79.01 Long term (current) use of anticoagulants
CPT/HCPCS: 71046; 99283; A9270; J7620-GY

== ENCOUNTER 2024-05-30 07:19 | Emergency (ER) | payer BC ==
[2024-05-30] MEDS ORDERED: Sodium Chloride 0.9% 2.5 ML Syringe FLUSH PRN (07:31)
[2024-05-30] MEDS ORDERED: Sodium Chloride 0.9% 10 ML Syringe FLUSH PRN (07:31)
[2024-05-30] MEDS: Sodium Chloride 0.9% 1,000 ML IV ONE ×2 (07:38→11:06)
[2024-05-30] MEDS: Ondansetron 4 MG/2 ML SDV IVPUSH ONE (07:43)
[2024-05-30] MEDS: Morphine 4 MG/ML Syringe IVPUSH ONE ×2 (07:43→11:06)
[2024-05-30] MEDS: Famotidine 20 MG/2 ML SDV IVPUSH ONE (07:43)
[2024-05-30 07:44] LABS: BASOPHILS ABSOLUTE AUTO 0.05 K/uL (0.00-0.20); BASOPHILS PERCENT AUTO 0.3 % (0.0-1.0); EOSINOPHILS ABSOLUTE AUTO 0.21 K/uL (0.00-0.45); EOSINOPHILS PERCENT AUTO 1.5 % (0.0-6.0); HEMATOCRIT 48.7 % (42.0-52.0); HEMOGLOBIN 17.6 g/dL (14.0-18.0); IMMATURE GRAN ABSOLUTE AUTO 0.05 K/uL (0.00-0.05); IMMATURE GRAN PERCENT AUTO 0.3 % (0.0-0.4); LYMPHOCYTES PERCENT AUTO 11.9 % (24.0-44.0); MEAN CORPUSCULAR HEMOGLOBIN 31.9 pg (28.0-32.0); MEAN CORPUSCULAR HGB CONC 36.1 g/dL (32.0-36.0); MEAN CORPUSCULAR VOLUME 88.4 fL (83.0-99.0); MEAN PLATELET VOLUME 9.8 fL (9.4-12.4); MONOCYTES ABSOLUTE AUTO 1.34 K/uL (0.00-0.80); MONOCYTES PERCENT AUTO 9.3 % (0.0-8.0); NEUTROPHILS ABSOLUTE AUTO 10.99 K/uL (1.80-7.70); NEUTROPHILS PERCENT AUTO 76.7 % (41.0-71.0); PLATELET COUNT,PLT 337 K/uL (150-400); RED BLOOD CELL COUNT 5.51 M/uL (4.52-5.90); WHITE BLOOD CELL COUNT,WBC 14.34 K/uL (3.9-11.3)
[2024-05-30 08:02] LABS: INR 3.8 (0.86-1.11)
[2024-05-30 08:13] LABS: A/G RATIO 1.1 (0.9-1.6); ALBUMIN 4.3 g/dL (3.4-5.0); BILIRUBIN TOTAL 1.2 mg/dL (0.2-1.0); CALCIUM 9.8 mg/dL (8.5-10.1); CARBON DIOXIDE,CO2 29.1 mmol/L (21.0-32.0); CREATININE 1.2 mg/dL (0.8-1.3); EST CRCL DRUG DOSING (CG) 82.15 mL/min; MAGNESIUM 2.2 mg/dL (1.8-2.4); POTASSIUM,K 4.2 mmol/L (3.5-5.1); PROTEIN TOTAL,TP 8.2 g/dL (6.4-8.2)
[2024-05-30] MEDS: Iopamidol 755 MG/ML 500 ML Multipack Bottle IVPUSH STA ×2 (08:54→11:32)
== END 2024-05-30 12:42 | disposition home or self-care (01) ==
LOC: MW.ED 07:19
DX: K52.9 Noninfective gastroenteritis and colitis, unspecified (principal); I10 Essential (primary) hypertension; E78.00 Pure hypercholesterolemia, unspecified; Z79.01 Long term (current) use of anticoagulants; Z79.899 Other long term (current) drug therapy; Z88.8 Allergy status to other drugs, medicaments and biological substances
CPT/HCPCS: 36415; 74175; 74177; 80053; 83605; 83690; 83735; 83880; 85025; 85610; 93005; 96361; 96374; 96375; 96376; 99284; J2270; J2405; J3490; J7030; Q9967; 93010

== ENCOUNTER 2025-03-23 15:23 | Inpatient (IN) | payer BC ==
[2025-03-23 15:46] LABS: BASOPHILS ABSOLUTE AUTO 0.04 K/uL (0.00-0.20); BASOPHILS PERCENT AUTO 0.2 % (0.0-1.0); EOSINOPHILS ABSOLUTE AUTO 0.12 K/uL (0.00-0.45); EOSINOPHILS PERCENT AUTO 0.7 % (0.0-6.0); HEMATOCRIT 43.1 % (42.0-52.0); HEMOGLOBIN 15.5 g/dL (14.0-18.0); IMMATURE GRAN ABSOLUTE AUTO 0.09 K/uL (0.00-0.05); IMMATURE GRAN PERCENT AUTO 0.5 % (0.0-0.4); LYMPHOCYTES ABSOLUTE AUTO 0.86 K/uL (1.00-4.80); LYMPHOCYTES PERCENT AUTO 4.7 % (24.0-44.0); MEAN CORPUSCULAR HEMOGLOBIN 32.2 pg (28.0-32.0); MEAN CORPUSCULAR VOLUME 89.4 fL (83.0-99.0); MEAN PLATELET VOLUME 10.3 fL (9.4-12.4); MONOCYTES ABSOLUTE AUTO 1.03 K/uL (0.00-0.80); MONOCYTES PERCENT AUTO 5.6 % (0.0-8.0); NEUTROPHILS ABSOLUTE AUTO 16.31 K/uL (1.80-7.70); NEUTROPHILS PERCENT AUTO 88.3 % (41.0-71.0); PLATELET COUNT,PLT 217 K/uL (150-400); RED BLOOD CELL COUNT 4.82 M/uL (4.52-5.90); WHITE BLOOD CELL COUNT,WBC 18.45 K/uL (3.9-11.3)
[2025-03-23 15:57] LABS: INR 3.2 (0.86-1.11)
[2025-03-23 15:59] LABS: A/G RATIO 1.5 (0.9-1.6); ALBUMIN 4.4 g/dL (3.4-5.0); BILIRUBIN TOTAL 1.2 mg/dL (0.2-1.0); CREATININE 1.4 mg/dL (0.8-1.3); EST CRCL DRUG DOSING (CG) 69.58 mL/min; POTASSIUM,K 4.3 mmol/L (3.5-5.1); PROTEIN TOTAL,TP 7.4 g/dL (6.4-8.2)
[2025-03-23 16:03] LABS: LACTIC ACID 1.1 mmol/L (0.4-2.0)
[2025-03-23] MEDS: Iopamidol 755 MG/ML 500 ML Multipack Bottle IVPUSH STA ×2 (16:06→19:10)
[2025-03-23] MEDS: Sodium Chloride 0.9% 1,000 ML IV ONE ×4 (16:40→19:52)
[2025-03-23] MEDS: Ketorolac 30 MG/ML SDV IVPUSH ONE (18:00)
[2025-03-23 18:06] LABS: AMPHETAMINES SCREEN, URINE NEGATIVE (CUTOFF=500); BARBITURATE SCREEN,URINE NEGATIVE (CUTOFF=200); BENZODIAZEPINES SCREEN,URINE NEGATIVE (CUTOFF=150); BUPRENORPHINE SCREEN,URINE NEGATIVE (CUTOFF=10); METHADONE SCREEN, URINE NEGATIVE (CUTOFF=200); METHAMPHETAMINES SCREEN, URINE NEGATIVE (CUTOFF=500); OXYCODONE SCREEN,URINE NEGATIVE (CUT0FF=100); PCP SCREEN,URINE NEGATIVE (CUTOFF=25); THC SCREEN,URINE 20 NG/ML NEGATIVE (CUTOFF=50)
[2025-03-23 18:21] LABS: APPEARANCE,URINE CLEAR; BILIRUBIN,URINE NEGATIVE (NEGATIVE); COLOR,URINE YELLOW; GLUCOSE,URINE NEGATIVE (NEGATIVE); KETONES,URINE NEGATIVE (NEGATIVE); LEUKOCYTE ESTERASE,URINE NEGATIVE (NEGATIVE); NITRITE,URINE NEGATIVE (NEGATIVE); OCCULT BLOOD,URINE NEGATIVE (NEGATIVE); PH,URINE 5.5 (5.0-8.0); PROTEIN,URINE NEGATIVE (NEGATIVE); UROBILINOGEN,URINE 0.2 EU/dL (<2.0)
[2025-03-23 18:23] LABS: ETHANOL BLOOD MEDICAL <3 mg/dL; TSH ULTRASENSITIVE 0.42 uIU/mL (0.36-3.74)
[2025-03-23 19:15] LABS: BASE EXCESS VENOUS -0.5 (-2.0-3.0); PH,VENOUS 7.44 (7.32-7.43)
[2025-03-23] MEDS ORDERED: Norepinephrine Bit/D5W Premix 250 ML IV SCH ×2 (19:15→21:30)
[2025-03-23] MEDS: cefTRIAXone 1 GM in Water For Injection, Sterile 10 ML IVPUSH ONE ×2 (19:52→20:35)
[2025-03-23] MEDS: Acetaminophen 500 MG Tab PO ONE (19:53)
[2025-03-23] MEDS ORDERED: Morphine 2 MG/ML SYRINGE IVPUSH PRN (21:11)
[2025-03-23] MEDS ORDERED: Sodium Chloride 0.9% 10 ML Syringe FLUSH PRN (21:11)
[2025-03-23] MEDS ORDERED: Naloxone 0.4 MG/ML SDV IVPUSH PRN (21:11)
[2025-03-23] MEDS ORDERED: Sodium Chloride 0.9% 2.5 ML Syringe FLUSH PRN (21:11)
[2025-03-23 21:23] LABS: CORONAVIRUS COVID-19 NAA NEGATIVE (NEGATIVE); INFLUENZA A NAA NEGATIVE (NEGATIVE); INFLUENZA B NAA NEGATIVE (NEGATIVE); RESPIRATORY SYNCYTIAL VIR NAA NEGATIVE (NEGATIVE)
[2025-03-23] MEDS: Sodium Chloride 0.9% 500 ML IV SCH (21:57)
[2025-03-23] MEDS: Azithromycin 500 MG in Sodium Chloride 0.9% 250 ML IV SCH (22:05)
[2025-03-24] MEDS: Acetaminophen 325 MG Tab PO PRN (00:08)
[2025-03-24] MEDS: Sodium Chloride 0.9% 1,000 ML IV SCH (02:04)
[2025-03-24] MEDS: Acetaminophen 500 MG Tab PO PRN (04:07)
[2025-03-24] MEDS: Ondansetron 4 MG/2 ML SDV IVPUSH PRN (04:12)
[2025-03-24] MEDS: VANCOmycin 1.5 GM in Sodium Chloride 0.9% 250 ML IV SCH (05:54)
[2025-03-24] MEDS ORDERED: VANCOmycin 1 GM in Sodium Chloride 0.9% 250 ML IV ONE (06:00)
[2025-03-24 06:31] LABS: BASOPHILS ABSOLUTE AUTO 0.03 K/uL (0.00-0.20); BASOPHILS PERCENT AUTO 0.2 % (0.0-1.0); HEMATOCRIT 36.4 % (42.0-52.0); HEMOGLOBIN 12.6 g/dL (14.0-18.0); IMMATURE GRAN ABSOLUTE AUTO 0.08 K/uL (0.00-0.05); IMMATURE GRAN PERCENT AUTO 0.5 % (0.0-0.4); LYMPHOCYTES ABSOLUTE AUTO 0.51 K/uL (1.00-4.80); LYMPHOCYTES PERCENT AUTO 3.3 % (24.0-44.0); MEAN CORPUSCULAR HEMOGLOBIN 31.5 pg (28.0-32.0); MEAN CORPUSCULAR HGB CONC 34.6 g/dL (32.0-36.0); MEAN PLATELET VOLUME 10.4 fL (9.4-12.4); MONOCYTES ABSOLUTE AUTO 0.95 K/uL (0.00-0.80); MONOCYTES PERCENT AUTO 6.1 % (0.0-8.0); NEUTROPHILS ABSOLUTE AUTO 13.91 K/uL (1.80-7.70); NEUTROPHILS PERCENT AUTO 89.9 % (41.0-71.0); PLATELET COUNT,PLT 162 K/uL (150-400); WHITE BLOOD CELL COUNT,WBC 15.48 K/uL (3.9-11.3)
[2025-03-24 06:32] LABS: INR 2.3 (0.86-1.11)
[2025-03-24 06:50] LABS: CALCIUM 7.5 mg/dL (8.5-10.1); CARBON DIOXIDE,CO2 22.2 mmol/L (21.0-32.0); CREATININE 1.4 mg/dL (0.8-1.3); EST CRCL DRUG DOSING (CG) 69.58 mL/min; MAGNESIUM 1.6 mg/dL (1.8-2.4); POTASSIUM,K 3.9 mmol/L (3.5-5.1)
[2025-03-24] MEDS: Formoterol/Mometasone 200-5 MCG 8.8 GM Inhaler INH SCH (08:21)
[2025-03-24] MEDS ORDERED: atorvaSTATin 40 MG Tab PO SCH ×2 (09:00→21:00)
[2025-03-24] MEDS ORDERED: VANCOmycin 750 MG in Sodium Chloride 0.9% 250 ML IV SCH (14:00)
[2025-03-24] MEDS ORDERED: Warfarin Sliding Scale SCH (14:00)
[2025-03-24] MEDS ORDERED: cefTRIAXone 2 GM in Water For Injection, Sterile 20 ML IVPUSH SCH (18:00)
[2025-03-24 22:02] LABS: BORDETELLA PARAPERT IS1001 Not Detected (Not Detected)
== END 2025-03-24 11:00 | DRG 720 ==
LOC: MW.ED 15:23 → MW.ICU 20:47
PROVIDERS: ADMIT Family Medicine; ATTEND Family Medicine
DX: A41.9 Sepsis, unspecified organism (principal); I33.9 Acute and subacute endocarditis, unspecified; N30.00 Acute cystitis without hematuria; E78.00 Pure hypercholesterolemia, unspecified; I10 Essential (primary) hypertension; J45.909 Unspecified asthma, uncomplicated; E86.0 Dehydration; N17.9 Acute kidney failure, unspecified; I48.20 Chronic atrial fibrillation, unspecified; Z95.2 Presence of prosthetic heart valve; Z88.8 Allergy status to other drugs, medicaments and biological substances; Z86.16 Personal history of COVID-19; Z79.899 Other long term (current) drug therapy; Z98.890 Other specified postprocedural states; Z79.01 Long term (current) use of anticoagulants
CPT/HCPCS: 0241U; 36415; 70450; 70450-26; 70496; 70496-26; 70498; 70498-26; 71045; 71045-26; 71275; 71275-26; 74177; 74177-26; 80048; 80053; 80305; 80307; 81003; 82550; 82803; 83605; 83735; 84443; 84484; 85025; 85610; 85730; 86788; 87040; 87077; 87154; 87186; 87486; 87581; 87633; 93005; A9270-GY; J0456; J0696; J1885; J2405; J3371; J7030; J7040; J7050; Q9967

== ENCOUNTER 2025-04-03 18:01 | Emergency (ER) | payer BC ==
[2025-04-03 18:41] LABS: BASOPHILS ABSOLUTE AUTO 0.03 K/uL (0.00-0.20); BASOPHILS PERCENT AUTO 0.3 % (0.0-1.0); EOSINOPHILS ABSOLUTE AUTO 0.13 K/uL (0.00-0.45); EOSINOPHILS PERCENT AUTO 1.3 % (0.0-6.0); IMMATURE GRAN ABSOLUTE AUTO 0.06 K/uL (0.00-0.05); IMMATURE GRAN PERCENT AUTO 0.6 % (0.0-0.4); LYMPHOCYTES ABSOLUTE AUTO 1.57 K/uL (1.00-4.80); LYMPHOCYTES PERCENT AUTO 15.7 % (24.0-44.0); MEAN PLATELET VOLUME 9.1 fL (9.4-12.4); MONOCYTES ABSOLUTE AUTO 0.58 K/uL (0.00-0.80); MONOCYTES PERCENT AUTO 5.8 % (0.0-8.0); NEUTROPHILS ABSOLUTE AUTO 7.62 K/uL (1.80-7.70); NEUTROPHILS PERCENT AUTO 76.3 % (41.0-71.0); NRBC ABSOLUTE 0.00 K/uL (0.00-0.02); NRBC PERCENT 0.0 /100WBC (0.0-0.2); PLATELET COUNT,PLT 404 K/uL (150-400); RED BLOOD CELL COUNT 4.12 M/uL (4.52-5.90); WHITE BLOOD CELL COUNT,WBC 9.99 K/uL (3.9-11.3)
[2025-04-03 19:01] LABS: A/G RATIO 0.9 (0.9-1.6); ALANINE AMINOTRANSFERASE,ALT 84 IU/L (14-63); ASPARTATE AMNIOTRANSFERASE,AST 21 IU/L (15-37); BILIRUBIN TOTAL 0.4 mg/dL (0.2-1.0); BLOOD UREA NITROGEN,BUN 14 mg/dL (7.0-18.0); CARBON DIOXIDE,CO2 27.0 mmol/L (21.0-32.0); CHLORIDE,CL 103 mmol/L (98-107); CREATININE 1.1 mg/dL (0.8-1.3); ESTIMATED GFR 78 mL/min (>60); GLUCOSE RANDOM 127 mg/dL (74-106); POTASSIUM,K 3.8 mmol/L (3.5-5.1); PRO B-TYPE NATRIUR PEPT,BNPPRO 592 pg/mL (0-125); PROTEIN TOTAL,TP 7.0 g/dL (6.4-8.2); SODIUM,NA 140 mmol/L (136-148)
== END 2025-04-03 19:47 | disposition home or self-care (01) ==
LOC: MW.ED 18:01
DX: R00.2 Palpitations (principal); I48.91 Unspecified atrial fibrillation; R79.89 Other specified abnormal findings of blood chemistry; Z95.828 Presence of other vascular implants and grafts; Z73.3 Stress, not elsewhere classified; Z95.2 Presence of prosthetic heart valve; Z86.2 Personal history of diseases of the blood and blood-forming organs and certain disorders involving the immune mechanism
CPT/HCPCS: 36415; 71045; 71045-26; 80053; 83735; 83880; 84484; 85025; 85652; 86140; 93005; 93010; 99283; 99285

== ENCOUNTER 2025-04-27 10:48 | Inpatient (IN) | payer BC ==
[2025-04-27 11:15] LABS: BASOPHILS ABSOLUTE AUTO 0.04 K/uL (0.00-0.20); BASOPHILS PERCENT AUTO 0.3 % (0.0-1.0); EOSINOPHILS ABSOLUTE AUTO 0.04 K/uL (0.00-0.45); EOSINOPHILS PERCENT AUTO 0.3 % (0.0-6.0); IMMATURE GRAN ABSOLUTE AUTO 0.04 K/uL (0.00-0.05); IMMATURE GRAN PERCENT AUTO 0.3 % (0.0-0.4); LYMPHOCYTES ABSOLUTE AUTO 1.72 K/uL (1.00-4.80); LYMPHOCYTES PERCENT AUTO 11.4 % (24.0-44.0); MEAN PLATELET VOLUME 10.2 fL (9.4-12.4); MONOCYTES ABSOLUTE AUTO 0.85 K/uL (0.00-0.80); MONOCYTES PERCENT AUTO 5.6 % (0.0-8.0); NEUTROPHILS ABSOLUTE AUTO 12.36 K/uL (1.80-7.70); NEUTROPHILS PERCENT AUTO 82.1 % (41.0-71.0); NRBC ABSOLUTE 0.00 K/uL (0.00-0.02); NRBC PERCENT 0.0 /100WBC (0.0-0.2); PLATELET COUNT,PLT 249 K/uL (150-400); RED BLOOD CELL COUNT 4.70 M/uL (4.52-5.90); WHITE BLOOD CELL COUNT,WBC 15.05 K/uL (3.9-11.3)
[2025-04-27] MEDS: Ondansetron 4 MG/2 ML SDV IVPUSH ONE (11:18)
[2025-04-27 11:31] LABS: INR 2.57 (0.86-1.11)
[2025-04-27 11:37] LABS: A/G RATIO 1.2 (0.9-1.6); ALANINE AMINOTRANSFERASE,ALT 45.0 IU/L (14-63); ASPARTATE AMNIOTRANSFERASE,AST 27.0 IU/L (15-37); BILIRUBIN TOTAL 0.6 mg/dL (0.2-1.0); BLOOD UREA NITROGEN,BUN 18.0 mg/dL (7.0-18.0); CARBON DIOXIDE,CO2 24.4 mmol/L (21.0-32.0); CHLORIDE,CL 101.0 mmol/L (98-107); CREATININE 1.3 mg/dL (0.8-1.3); EST CRCL DRUG DOSING (CG) 74.93 mL/min; ESTIMATED GFR 64.0 mL/min (>60); GLUCOSE RANDOM 125.0 mg/dL (74-106); POTASSIUM,K 3.8 mmol/L (3.5-5.1); PROTEIN TOTAL,TP 7.6 g/dL (6.4-8.2); SODIUM,NA 135.0 mmol/L (136-148)
[2025-04-27] MEDS: Iopamidol 755 MG/ML 500 ML Multipack Bottle IVPUSH STA (11:41)
[2025-04-27 11:42] LABS: LACTIC ACID 1.8 mmol/L (0.4-2.0)
[2025-04-27 13:04] LABS: APPEARANCE,URINE CLEAR; GLUCOSE,URINE NEGATIVE (NEGATIVE); OCCULT BLOOD,URINE NEGATIVE (NEGATIVE)
[2025-04-27 13:12] LABS: EPITHELIAL CELLS,URINE RARE (NONE-FEW)
[2025-04-27] MEDS: Alum Hydrox/Mag Hydrox/Simeth 15 ML, Metoclopramide 5 MG, Lidocaine 2% 5 ML PO ONE (16:04)
[2025-04-27] MEDS: Aluminum Hydroxide/Magnesium Hydroxide/Simethicone Susp 30 ML Cup PO ONE (16:04)
[2025-04-27] MEDS: cefTRIAXone 2 GM in Water For Injection, Sterile 20 ML IVPUSH ONE (16:26)
[2025-04-27] MEDS ORDERED: Sodium Chloride 0.9% 2.5 ML Syringe FLUSH PRN (18:25)
[2025-04-27] MEDS ORDERED: Sodium Chloride 0.9% 10 ML Syringe FLUSH PRN (18:25)
[2025-04-27] MEDS: Ondansetron 4 MG/2 ML SDV IVPUSH PRN (21:27)
[2025-04-27] MEDS: Pantoprazole 80 MG in Sodium Chloride 0.9% 10 ML IVPUSH SCH (21:38)
[2025-04-27] MEDS: Lactated Ringers 1,000 ML IV SCH (21:46)
[2025-04-27] MEDS: Ciprofloxacin in D5W 400 MG in Premix Bag 1 BAG IV SCH (23:56)
[2025-04-27] MEDS: metroNIDAZOLE/Normal Saline 500 MG in Premix Bag 1 BAG IV SCH (23:56)
[2025-04-28 06:14] LABS: MEAN PLATELET VOLUME 9.6 fL (9.4-12.4); NRBC ABSOLUTE 0.00 K/uL (0.00-0.02); NRBC PERCENT 0.0 /100WBC (0.0-0.2); PLATELET COUNT,PLT 257 K/uL (150-400); RED BLOOD CELL COUNT 4.85 M/uL (4.52-5.90); WHITE BLOOD CELL COUNT,WBC 19.39 K/uL (3.9-11.3)
[2025-04-28 06:52] LABS: LYMPHOCYTES ABSOLUTE MAN 2.33 K/uL (1.00-4.80); LYMPHOCYTES PERCENT MAN 12 % (24-44); MONOCYTES ABSOLUTE MAN 0.97 K/uL (0.00-0.80); MONOCYTES PERCENT MAN 5 % (0-8); SEG NEUTROPHILS ABSOLUTE MAN 16.09 K/uL (1.80-7.70); SEG NEUTROPHILS PERCENT MAN 83 % (41-71)
[2025-04-28 07:11] LABS: INR 2.32 (0.86-1.11)
[2025-04-28] MEDS: Metoprolol Succinate 100 MG Tab.ER PO SCH ×2 (09:57→14:50)
[2025-04-28] MEDS: cefTRIAXone 2 GM in Water For Injection, Sterile 20 ML IVPUSH SCH (11:32)
[2025-04-28] MEDS: Warfarin Sliding Scale PO SCH (14:49)
[2025-04-28 16:18] LABS: A/G RATIO 1.0 (0.9-1.6); ALANINE AMINOTRANSFERASE,ALT 65.0 IU/L (14-63); ASPARTATE AMNIOTRANSFERASE,AST 60.0 IU/L (15-37); BILIRUBIN TOTAL 1.1 mg/dL (0.2-1.0); BLOOD UREA NITROGEN,BUN 8.0 mg/dL (7.0-18.0); CARBON DIOXIDE,CO2 31.7 mmol/L (21.0-32.0); CHLORIDE,CL 101.0 mmol/L (98-107); CREATININE 1.3 mg/dL (0.8-1.3); EST CRCL DRUG DOSING (CG) 74.93 mL/min; GLUCOSE RANDOM 121.0 mg/dL (74-106); POTASSIUM,K 4.7 mmol/L (3.5-5.1); PROTEIN TOTAL,TP 6.7 g/dL (6.4-8.2); SODIUM,NA 138.0 mmol/L (136-148)
[2025-04-28 16:26] LABS: ESTIMATED GFR 64.0 mL/min (>60)
[2025-04-29 06:43] LABS: MEAN PLATELET VOLUME 9.7 fL (9.4-12.4); NRBC ABSOLUTE 0.00 K/uL (0.00-0.02); NRBC PERCENT 0.0 /100WBC (0.0-0.2); PLATELET COUNT,PLT 193 K/uL (150-400); RED BLOOD CELL COUNT 4.03 M/uL (4.52-5.90); WHITE BLOOD CELL COUNT,WBC 17.81 K/uL (3.9-11.3)
[2025-04-29 06:59] LABS: INR 2.74 (0.86-1.11)
[2025-04-29 07:03] LABS: LYMPHOCYTES % ATYPICAL MANUAL 5; LYMPHOCYTES ABSOLUTE MAN 1.42 K/uL (1.00-4.80); LYMPHOCYTES PERCENT MAN 8 % (24-44); SEG NEUTROPHILS ABSOLUTE MAN 15.49 K/uL (1.80-7.70); SEG NEUTROPHILS PERCENT MAN 87 % (41-71)
[2025-04-29 07:11] LABS: A/G RATIO 0.9 (0.9-1.6); ALANINE AMINOTRANSFERASE,ALT 57.0 IU/L (14-63); ASPARTATE AMNIOTRANSFERASE,AST 41.0 IU/L (15-37); BILIRUBIN TOTAL 1.4 mg/dL (0.2-1.0); BLOOD UREA NITROGEN,BUN 9.0 mg/dL (7.0-18.0); CARBON DIOXIDE,CO2 28.4 mmol/L (21.0-32.0); CHLORIDE,CL 102.0 mmol/L (98-107); CREATININE 1.0 mg/dL (0.8-1.3); EST CRCL DRUG DOSING (CG) 97.41 mL/min; ESTIMATED GFR 88.0 mL/min (>60); GLUCOSE RANDOM 109.0 mg/dL (74-106); POTASSIUM,K 4.0 mmol/L (3.5-5.1); PROTEIN TOTAL,TP 6.2 g/dL (6.4-8.2); SODIUM,NA 138.0 mmol/L (136-148)
[2025-04-29] MEDS: Metoprolol Succinate 100 MG Tab.ER PO SCH (09:12)
[2025-04-30 06:47] LABS: BASOPHILS ABSOLUTE AUTO 0.03 K/uL (0.00-0.20); BASOPHILS PERCENT AUTO 0.2 % (0.0-1.0); EOSINOPHILS ABSOLUTE AUTO 0.29 K/uL (0.00-0.45); EOSINOPHILS PERCENT AUTO 2.0 % (0.0-6.0); IMMATURE GRAN ABSOLUTE AUTO 0.05 K/uL (0.00-0.05); IMMATURE GRAN PERCENT AUTO 0.3 % (0.0-0.4); LYMPHOCYTES ABSOLUTE AUTO 1.57 K/uL (1.00-4.80); LYMPHOCYTES PERCENT AUTO 10.9 % (24.0-44.0); MEAN PLATELET VOLUME 10.5 fL (9.4-12.4); MONOCYTES ABSOLUTE AUTO 1.22 K/uL (0.00-0.80); MONOCYTES PERCENT AUTO 8.4 % (0.0-8.0); NEUTROPHILS ABSOLUTE AUTO 11.28 K/uL (1.80-7.70); NEUTROPHILS PERCENT AUTO 78.2 % (41.0-71.0); NRBC ABSOLUTE 0.00 K/uL (0.00-0.02); NRBC PERCENT 0.0 /100WBC (0.0-0.2); PLATELET COUNT,PLT 178 K/uL (150-400); RED BLOOD CELL COUNT 3.63 M/uL (4.52-5.90); WHITE BLOOD CELL COUNT,WBC 14.44 K/uL (3.9-11.3)
[2025-04-30 07:00] LABS: INR 2.75 (0.86-1.11)
[2025-04-30 07:08] LABS: A/G RATIO 0.8 (0.9-1.6); ALANINE AMINOTRANSFERASE,ALT 42.0 IU/L (14-63); ASPARTATE AMNIOTRANSFERASE,AST 27.0 IU/L (15-37); BILIRUBIN TOTAL 0.9 mg/dL (0.2-1.0); BLOOD UREA NITROGEN,BUN 9.0 mg/dL (7.0-18.0); CARBON DIOXIDE,CO2 29.9 mmol/L (21.0-32.0); CHLORIDE,CL 103.0 mmol/L (98-107); CREATININE 1.1 mg/dL (0.8-1.3); EST CRCL DRUG DOSING (CG) 88.55 mL/min; GLUCOSE RANDOM 99.0 mg/dL (74-106); POTASSIUM,K 3.7 mmol/L (3.5-5.1); PROTEIN TOTAL,TP 6.0 g/dL (6.4-8.2); SODIUM,NA 137.0 mmol/L (136-148)
[2025-04-30 07:10] LABS: ESTIMATED GFR 78.0 mL/min (>60)
[2025-05-01 06:18] LABS: BASOPHILS ABSOLUTE AUTO 0.04 K/uL (0.00-0.20); BASOPHILS PERCENT AUTO 0.4 % (0.0-1.0); EOSINOPHILS ABSOLUTE AUTO 0.46 K/uL (0.00-0.45); EOSINOPHILS PERCENT AUTO 4.1 % (0.0-6.0); IMMATURE GRAN ABSOLUTE AUTO 0.03 K/uL (0.00-0.05); IMMATURE GRAN PERCENT AUTO 0.3 % (0.0-0.4); LYMPHOCYTES ABSOLUTE AUTO 1.44 K/uL (1.00-4.80); LYMPHOCYTES PERCENT AUTO 12.9 % (24.0-44.0); MEAN PLATELET VOLUME 10.3 fL (9.4-12.4); MONOCYTES ABSOLUTE AUTO 1.03 K/uL (0.00-0.80); MONOCYTES PERCENT AUTO 9.3 % (0.0-8.0); NEUTROPHILS ABSOLUTE AUTO 8.13 K/uL (1.80-7.70); NEUTROPHILS PERCENT AUTO 73.0 % (41.0-71.0); NRBC ABSOLUTE 0.00 K/uL (0.00-0.02); NRBC PERCENT 0.0 /100WBC (0.0-0.2); PLATELET COUNT,PLT 205 K/uL (150-400); RED BLOOD CELL COUNT 3.56 M/uL (4.52-5.90); WHITE BLOOD CELL COUNT,WBC 11.13 K/uL (3.9-11.3)
[2025-05-01 06:33] LABS: INR 3.86 (0.86-1.11)
[2025-05-01 06:44] LABS: A/G RATIO 0.8 (0.9-1.6); ALANINE AMINOTRANSFERASE,ALT 35.0 IU/L (14-63); ASPARTATE AMNIOTRANSFERASE,AST 24.0 IU/L (15-37); BILIRUBIN TOTAL 0.7 mg/dL (0.2-1.0); BLOOD UREA NITROGEN,BUN 10.0 mg/dL (7.0-18.0); CARBON DIOXIDE,CO2 28.0 mmol/L (21.0-32.0); CHLORIDE,CL 103.0 mmol/L (98-107); CREATININE 1.1 mg/dL (0.8-1.3); EST CRCL DRUG DOSING (CG) 88.55 mL/min; GLUCOSE RANDOM 74.0 mg/dL (74-106); POTASSIUM,K 3.5 mmol/L (3.5-5.1); PROTEIN TOTAL,TP 6.0 g/dL (6.4-8.2); SODIUM,NA 138.0 mmol/L (136-148)
[2025-05-01 06:47] LABS: ESTIMATED GFR 78.0 mL/min (>60)
== END 2025-05-01 15:35 | disposition home or self-care (01) ==
LOC: MW.ED 10:48 → MW.MS 17:08 → OBSVTOIN 04-29 13:41 → MW.MS 04-29 18:04
PROVIDERS: ADMIT Internal Medicine; ATTEND Internal Medicine
DX: K80.00 Calculus of gallbladder with acute cholecystitis without obstruction (principal); R78.81 Bacteremia; K29.00 Acute gastritis without bleeding; J45.909 Unspecified asthma, uncomplicated; I48.91 Unspecified atrial fibrillation; I10 Essential (primary) hypertension; E78.00 Pure hypercholesterolemia, unspecified; K57.90 Diverticulosis of intestine, part unspecified, without perforation or abscess without bleeding; B96.89 Other specified bacterial agents as the cause of diseases classified elsewhere; Z79.82 Long term (current) use of aspirin; Z98.890 Other specified postprocedural states; Z88.8 Allergy status to other drugs, medicaments and biological substances; Z95.2 Presence of prosthetic heart valve; Z79.899 Other long term (current) drug therapy; Z79.01 Long term (current) use of anticoagulants
CPT/HCPCS: 36415; 74174; 74174-26; 74181; 74181-26; 76705; 76705-26; 78226; 78226-26; 80053; 81001; 82947; 83605; 83690; 85025; 85027; 85610; 85652; 86140; 87040; A9270-GY; A9537; J0696; J0744; J1171; J1308; J1836; J2270; J2405; J2470; J2543; J7030; J7120; Q9967

== ENCOUNTER 2025-06-03 00:52 | Emergency (ER) | payer BC ==
[2025-06-03] MEDS ORDERED: Sodium Chloride 0.9% 2.5 ML Syringe FLUSH PRN (00:59)
[2025-06-03] MEDS ORDERED: Sodium Chloride 0.9% 10 ML Syringe FLUSH PRN (00:59)
[2025-06-03] MEDS: Ondansetron 4 MG/2 ML SDV IVPUSH ONE (01:13)
[2025-06-03 01:14] LABS: BASOPHILS ABSOLUTE AUTO 0.04 K/uL (0.00-0.20); BASOPHILS PERCENT AUTO 0.4 % (0.0-1.0); EOSINOPHILS ABSOLUTE AUTO 0.16 K/uL (0.00-0.45); EOSINOPHILS PERCENT AUTO 1.7 % (0.0-6.0); IMMATURE GRAN ABSOLUTE AUTO 0.01 K/uL (0.00-0.05); IMMATURE GRAN PERCENT AUTO 0.1 % (0.0-0.4); LYMPHOCYTES ABSOLUTE AUTO 1.73 K/uL (1.00-4.80); LYMPHOCYTES PERCENT AUTO 18.6 % (24.0-44.0); MEAN PLATELET VOLUME 9.9 fL (9.4-12.4); MONOCYTES ABSOLUTE AUTO 1.09 K/uL (0.00-0.80); MONOCYTES PERCENT AUTO 11.7 % (0.0-8.0); NEUTROPHILS ABSOLUTE AUTO 6.29 K/uL (1.80-7.70); NEUTROPHILS PERCENT AUTO 67.5 % (41.0-71.0); NRBC ABSOLUTE 0.00 K/uL (0.00-0.02); NRBC PERCENT 0.0 /100WBC (0.0-0.2); PLATELET COUNT,PLT 241 K/uL (150-400); RED BLOOD CELL COUNT 4.61 M/uL (4.52-5.90); WHITE BLOOD CELL COUNT,WBC 9.32 K/uL (3.9-11.3)
[2025-06-03] MEDS: Pantoprazole 40 MG in Sodium Chloride 0.9% 10 ML IVPUSH ONE (01:23)
[2025-06-03 01:38] LABS: A/G RATIO 1.2 (0.9-1.6); ALANINE AMINOTRANSFERASE,ALT 244.0 IU/L (14-63); ASPARTATE AMNIOTRANSFERASE,AST 307.0 IU/L (15-37); BILIRUBIN TOTAL 3.2 mg/dL (0.2-1.0); BLOOD UREA NITROGEN,BUN 7.0 mg/dL (7.0-18.0); CARBON DIOXIDE,CO2 31.5 mmol/L (21.0-32.0); CHLORIDE,CL 106.0 mmol/L (98-107); CREATININE 1.1 mg/dL (0.8-1.3); EST CRCL DRUG DOSING (CG) 88.55 mL/min; GLUCOSE RANDOM 103.0 mg/dL (74-106); POTASSIUM,K 3.6 mmol/L (3.5-5.1); PROTEIN TOTAL,TP 7.4 g/dL (6.4-8.2); SODIUM,NA 145.0 mmol/L (136-148)
[2025-06-03] MEDS: Iopamidol 755 MG/ML 500 ML Multipack Bottle IVPUSH ONE (01:38)
[2025-06-03 01:53] LABS: ESTIMATED GFR 78.0 mL/min (>60)
[2025-06-03 02:12] LABS: INR 2.22 (0.86-1.11)
[2025-06-03] MEDS: droPERidol 2.5 MG/ML SDV IVPUSH ONE (02:12)
== END 2025-06-03 04:49 ==
LOC: MW.ED 00:52
DX: K85.10 Biliary acute pancreatitis without necrosis or infection (principal); K80.42 Calculus of bile duct with acute cholecystitis without obstruction; R91.1 Solitary pulmonary nodule; R74.8 Abnormal levels of other serum enzymes; I10 Essential (primary) hypertension; E78.00 Pure hypercholesterolemia, unspecified; J45.909 Unspecified asthma, uncomplicated; Z95.2 Presence of prosthetic heart valve; Z88.8 Allergy status to other drugs, medicaments and biological substances; Z79.01 Long term (current) use of anticoagulants; Z79.82 Long term (current) use of aspirin; Z79.899 Other long term (current) drug therapy
CPT/HCPCS: 36415; 74177; 80053; 83605; 83690; 85025; 85610; 85652; 86140; 96361; 96365; 96375; 99285; J1171; J1790; J2405; J2470; J2543; J7030; Q9967; 93010

== ENCOUNTER 2025-06-25 19:29 | Inpatient (IN) | payer BC ==
[2025-06-25 19:58] LABS: BASOPHILS ABSOLUTE AUTO 0.06 K/uL (0.00-0.20); BASOPHILS PERCENT AUTO 0.2 % (0.0-1.0); EOSINOPHILS ABSOLUTE AUTO 0.04 K/uL (0.00-0.45); EOSINOPHILS PERCENT AUTO 0.1 % (0.0-6.0); IMMATURE GRAN ABSOLUTE AUTO 0.12 K/uL (0.00-0.05); IMMATURE GRAN PERCENT AUTO 0.4 % (0.0-0.4); LYMPHOCYTES ABSOLUTE AUTO 1.87 K/uL (1.00-4.80); LYMPHOCYTES PERCENT AUTO 6.9 % (24.0-44.0); MEAN PLATELET VOLUME 10.1 fL (9.4-12.4); MONOCYTES ABSOLUTE AUTO 2.20 K/uL (0.00-0.80); MONOCYTES PERCENT AUTO 8.1 % (0.0-8.0); NEUTROPHILS ABSOLUTE AUTO 22.93 K/uL (1.80-7.70); NEUTROPHILS PERCENT AUTO 84.3 % (41.0-71.0); NRBC ABSOLUTE 0.00 K/uL (0.00-0.02); NRBC PERCENT 0.0 /100WBC (0.0-0.2); PLATELET COUNT,PLT 438 K/uL (150-400); RED BLOOD CELL COUNT 5.33 M/uL (4.52-5.90); WHITE BLOOD CELL COUNT,WBC 27.22 K/uL (3.9-11.3)
[2025-06-25 20:20] LABS: A/G RATIO 1.1 (0.9-1.6); ALANINE AMINOTRANSFERASE,ALT 51.0 IU/L (14-63); ASPARTATE AMNIOTRANSFERASE,AST 44.0 IU/L (15-37); BILIRUBIN TOTAL 0.9 mg/dL (0.2-1.0); BLOOD UREA NITROGEN,BUN 15.0 mg/dL (7.0-18.0); CARBON DIOXIDE,CO2 28.2 mmol/L (21.0-32.0); CHLORIDE,CL 103.0 mmol/L (98-107); CREATININE 1.4 mg/dL (0.8-1.3); EST CRCL DRUG DOSING (CG) 69.58 mL/min; GLUCOSE RANDOM 118.0 mg/dL (74-106); POTASSIUM,K 4.3 mmol/L (3.5-5.1); PROTEIN TOTAL,TP 7.0 g/dL (6.4-8.2); SODIUM,NA 139.0 mmol/L (136-148)
[2025-06-25 20:21] LABS: ESTIMATED GFR 59.0 mL/min (>60)
[2025-06-25] MEDS: Iopamidol 755 MG/ML 500 ML Multipack Bottle IVPUSH STA (21:31)
[2025-06-25] MEDS: Ondansetron 4 MG/2 ML SDV IVPUSH ONE (21:33)
[2025-06-25 23:45] LABS: APPEARANCE,URINE CLEAR; GLUCOSE,URINE NEGATIVE (NEGATIVE); OCCULT BLOOD,URINE NEGATIVE (NEGATIVE)
[2025-06-26] MEDS ORDERED: Sodium Chloride 0.9% 10 ML Syringe FLUSH PRN (01:09)
[2025-06-26] MEDS ORDERED: Sodium Chloride 0.9% 2.5 ML Syringe FLUSH PRN (01:09)
[2025-06-26] MEDS: Ondansetron 4 MG/2 ML SDV IVPUSH PRN (01:39)
[2025-06-26 02:08] LABS: LACTIC ACID 1.1 mmol/L (0.4-2.0)
[2025-06-26 06:05] LABS: MEAN PLATELET VOLUME 10.2 fL (9.4-12.4); NRBC ABSOLUTE 0.00 K/uL (0.00-0.02); NRBC PERCENT 0.0 /100WBC (0.0-0.2); PLATELET COUNT,PLT 375 K/uL (150-400); RED BLOOD CELL COUNT 5.22 M/uL (4.52-5.90); WHITE BLOOD CELL COUNT,WBC 22.05 K/uL (3.9-11.3)
[2025-06-26 06:26] LABS: INR 1.11 (0.86-1.11)
[2025-06-26 06:41] LABS: LYMPHOCYTES ABSOLUTE MAN 1.10 K/uL (1.00-4.80); LYMPHOCYTES PERCENT MAN 5 % (24-44); MONOCYTES ABSOLUTE MAN 1.32 K/uL (0.00-0.80); MONOCYTES PERCENT MAN 6 % (0-8); SEG NEUTROPHILS ABSOLUTE MAN 19.62 K/uL (1.80-7.70); SEG NEUTROPHILS PERCENT MAN 89 % (41-71)
[2025-06-26 06:45] LABS: A/G RATIO 1.0 (0.9-1.6); ALANINE AMINOTRANSFERASE,ALT 43.0 IU/L (14-63); ASPARTATE AMNIOTRANSFERASE,AST 31.0 IU/L (15-37); BILIRUBIN TOTAL 0.7 mg/dL (0.2-1.0); BLOOD UREA NITROGEN,BUN 12.0 mg/dL (7.0-18.0); CARBON DIOXIDE,CO2 26.0 mmol/L (21.0-32.0); CHLORIDE,CL 108.0 mmol/L (98-107); CREATININE 1.2 mg/dL (0.8-1.3); EST CRCL DRUG DOSING (CG) 81.17 mL/min; GLUCOSE RANDOM 108.0 mg/dL (74-106); POTASSIUM,K 4.1 mmol/L (3.5-5.1); PROTEIN TOTAL,TP 6.3 g/dL (6.4-8.2); SODIUM,NA 142.0 mmol/L (136-148)
[2025-06-26 06:55] LABS: ESTIMATED GFR 71.0 mL/min (>60)
[2025-06-26] MEDS: Warfarin Sliding Scale SCH (14:44)
[2025-06-26] MEDS: Acetaminophen/HYDROcodone 325-5 MG Tab PO PRN (17:46)
[2025-06-26] MEDS: Formoterol/Mometasone 200-5 MCG 8.8 GM Inhaler INH SCH (21:58)
[2025-06-27 07:00] LABS: BASOPHILS ABSOLUTE AUTO 0.07 K/uL (0.00-0.20); BASOPHILS PERCENT AUTO 0.4 % (0.0-1.0); EOSINOPHILS ABSOLUTE AUTO 0.03 K/uL (0.00-0.45); EOSINOPHILS PERCENT AUTO 0.2 % (0.0-6.0); IMMATURE GRAN ABSOLUTE AUTO 0.07 K/uL (0.00-0.05); IMMATURE GRAN PERCENT AUTO 0.4 % (0.0-0.4); LYMPHOCYTES ABSOLUTE AUTO 1.88 K/uL (1.00-4.80); LYMPHOCYTES PERCENT AUTO 10.9 % (24.0-44.0); MEAN PLATELET VOLUME 10.4 fL (9.4-12.4); MONOCYTES ABSOLUTE AUTO 1.36 K/uL (0.00-0.80); MONOCYTES PERCENT AUTO 7.9 % (0.0-8.0); NEUTROPHILS ABSOLUTE AUTO 13.82 K/uL (1.80-7.70); NEUTROPHILS PERCENT AUTO 80.2 % (41.0-71.0); NRBC ABSOLUTE 0.00 K/uL (0.00-0.02); NRBC PERCENT 0.0 /100WBC (0.0-0.2); PLATELET COUNT,PLT 275 K/uL (150-400); RED BLOOD CELL COUNT 4.35 M/uL (4.52-5.90); WHITE BLOOD CELL COUNT,WBC 17.23 K/uL (3.9-11.3)
[2025-06-27 07:19] LABS: INR 2.18 (0.86-1.11)
[2025-06-27 07:23] LABS: BLOOD UREA NITROGEN,BUN 8.0 mg/dL (7.0-18.0); CARBON DIOXIDE,CO2 26.5 mmol/L (21.0-32.0); CHLORIDE,CL 111.0 mmol/L (98-107); CREATININE 1.0 mg/dL (0.8-1.3); EST CRCL DRUG DOSING (CG) 97.41 mL/min; GLUCOSE RANDOM 100.0 mg/dL (74-106); PHOSPHORUS 3.2 mg/dL (2.6-4.7); POTASSIUM,K 4.0 mmol/L (3.5-5.1); SODIUM,NA 146.0 mmol/L (136-148)
[2025-06-27 07:25] LABS: ESTIMATED GFR 88.0 mL/min (>60)
[2025-06-27] MEDS: Metoprolol Succinate 100 MG Tab.ER PO SCH (10:05)
[2025-06-28 05:59] LABS: BASOPHILS ABSOLUTE AUTO 0.06 K/uL (0.00-0.20); BASOPHILS PERCENT AUTO 0.5 % (0.0-1.0); EOSINOPHILS ABSOLUTE AUTO 0.16 K/uL (0.00-0.45); EOSINOPHILS PERCENT AUTO 1.3 % (0.0-6.0); IMMATURE GRAN ABSOLUTE AUTO 0.04 K/uL (0.00-0.05); IMMATURE GRAN PERCENT AUTO 0.3 % (0.0-0.4); LYMPHOCYTES ABSOLUTE AUTO 1.66 K/uL (1.00-4.80); LYMPHOCYTES PERCENT AUTO 13.6 % (24.0-44.0); MEAN PLATELET VOLUME 10.1 fL (9.4-12.4); MONOCYTES ABSOLUTE AUTO 1.02 K/uL (0.00-0.80); MONOCYTES PERCENT AUTO 8.3 % (0.0-8.0); NEUTROPHILS ABSOLUTE AUTO 9.29 K/uL (1.80-7.70); NEUTROPHILS PERCENT AUTO 76.0 % (41.0-71.0); NRBC ABSOLUTE 0.00 K/uL (0.00-0.02); NRBC PERCENT 0.0 /100WBC (0.0-0.2); PLATELET COUNT,PLT 231 K/uL (150-400); RED BLOOD CELL COUNT 3.91 M/uL (4.52-5.90); WHITE BLOOD CELL COUNT,WBC 12.23 K/uL (3.9-11.3)
[2025-06-28 06:16] LABS: INR 3.17 (0.86-1.11)
[2025-06-28 06:20] LABS: BLOOD UREA NITROGEN,BUN 5.0 mg/dL (7.0-18.0); CARBON DIOXIDE,CO2 27.9 mmol/L (21.0-32.0); CHLORIDE,CL 109.0 mmol/L (98-107); CREATININE 0.8 mg/dL (0.8-1.3); EST CRCL DRUG DOSING (CG) 121.76 mL/min; GLUCOSE RANDOM 102.0 mg/dL (74-106); POTASSIUM,K 3.6 mmol/L (3.5-5.1); SODIUM,NA 141.0 mmol/L (136-148)
[2025-06-28 06:29] LABS: ESTIMATED GFR 103.0 mL/min (>60)
[2025-06-28] MEDS: SALMETEROL INH SCH (09:50)
[2025-06-28] MEDS: FLUTICASONE INH SCH (09:50)
[2025-06-29 06:00] LABS: BASOPHILS ABSOLUTE AUTO 0.05 K/uL (0.00-0.20); BASOPHILS PERCENT AUTO 0.5 % (0.0-1.0); EOSINOPHILS ABSOLUTE AUTO 0.18 K/uL (0.00-0.45); EOSINOPHILS PERCENT AUTO 1.9 % (0.0-6.0); IMMATURE GRAN ABSOLUTE AUTO 0.03 K/uL (0.00-0.05); IMMATURE GRAN PERCENT AUTO 0.3 % (0.0-0.4); LYMPHOCYTES ABSOLUTE AUTO 1.95 K/uL (1.00-4.80); LYMPHOCYTES PERCENT AUTO 20.6 % (24.0-44.0); MEAN PLATELET VOLUME 10.4 fL (9.4-12.4); MONOCYTES ABSOLUTE AUTO 0.79 K/uL (0.00-0.80); MONOCYTES PERCENT AUTO 8.3 % (0.0-8.0); NEUTROPHILS ABSOLUTE AUTO 6.47 K/uL (1.80-7.70); NEUTROPHILS PERCENT AUTO 68.4 % (41.0-71.0); NRBC ABSOLUTE 0.00 K/uL (0.00-0.02); NRBC PERCENT 0.0 /100WBC (0.0-0.2); PLATELET COUNT,PLT 229 K/uL (150-400); RED BLOOD CELL COUNT 4.07 M/uL (4.52-5.90); WHITE BLOOD CELL COUNT,WBC 9.47 K/uL (3.9-11.3)
[2025-06-29 06:16] LABS: INR 3.01 (0.86-1.11)
[2025-06-29 06:23] LABS: BLOOD UREA NITROGEN,BUN 4.0 mg/dL (7.0-18.0); CARBON DIOXIDE,CO2 30.9 mmol/L (21.0-32.0); CHLORIDE,CL 106.0 mmol/L (98-107); CREATININE 0.7 mg/dL (0.8-1.3); EST CRCL DRUG DOSING (CG) 139.16 mL/min; GLUCOSE RANDOM 91.0 mg/dL (74-106); POTASSIUM,K 3.5 mmol/L (3.5-5.1); SODIUM,NA 142.0 mmol/L (136-148)
[2025-06-29 06:35] LABS: ESTIMATED GFR 107.0 mL/min (>60)
== END 2025-06-29 12:57 | disposition home or self-care (01) | DRG 248 ==
LOC: MW.ED 19:29 → MW.MS 23:22
PROVIDERS: ADMIT Internal Medicine; ATTEND Internal Medicine
DX: A04.72 Enterocolitis due to Clostridium difficile, not specified as recurrent (principal); E78.00 Pure hypercholesterolemia, unspecified; I10 Essential (primary) hypertension; J45.909 Unspecified asthma, uncomplicated; I48.0 Paroxysmal atrial fibrillation; E86.0 Dehydration; N17.9 Acute kidney failure, unspecified; I25.10 Atherosclerotic heart disease of native coronary artery without angina pectoris; Z90.49 Acquired absence of other specified parts of digestive tract; Z88.8 Allergy status to other drugs, medicaments and biological substances; Z79.899 Other long term (current) drug therapy; Z79.82 Long term (current) use of aspirin; Z79.01 Long term (current) use of anticoagulants; Z79.2 Long term (current) use of antibiotics; Z95.2 Presence of prosthetic heart valve; Z98.890 Other specified postprocedural states; Z79.51 Long term (current) use of inhaled steroids
CPT/HCPCS: 36415; 74177; 74177-26; 80048; 80053; 81003; 83605; 83735; 84100; 85025; 85610; 85652; 86140; 87324; 87507; 96361; 96374; 96375; 99285; 99285-25; A9270-GY; J1171; J1650; J2270; J2405; J7030; Q9967